=== PATIENT | female | born 1985 | race African-American/Black ===

== ENCOUNTER 2020-11-09 04:24 | Emergency (ER) | payer OTHER, SELFPAY ==
[2020-11-09] MEDS ORDERED: Dicyclomine 20 MG TAB ONE (04:41)
[2020-11-09] MEDS ORDERED: HYDROcodone/Acetaminophen 10/325 mg Tablet ONE (04:41)
[2020-11-09 05:05] LABS: Bilirubin Negative (Negative); Blood, Urine Large (Negative); Clarity Clear (Clear); Glucose, Urine (Dipstick) Negative (Negative); Ketone, Urine Negative (Negative); Leukocyte Negative (Negative); Nitrite Negative (Negative); Protein, Urine (Dipstick) Negative (Neg-Trace); Urobilinogen 0.2 mg/dL (Less than 2)
[2020-11-09 05:22] LABS: Bacteria/HPF Rare-Few HPF (None Seen); RBC/HPF 0-3 HPF (0-3); Squamous Epithelial 0-3 HPF (0-3); WBC/HPF 0-3 HPF (0-3)
== END 2020-11-09 05:26 | disposition home or self-care (01) ==
LOC: BURERS 04:24 → EDBD 04:24 → BURERS 05:26
DX: N23 Unspecified renal colic (principal); Z87.442 Personal history of urinary calculi
CPT/HCPCS: 81003; 81015; 99284

== ENCOUNTER 2021-03-05 22:45 | Emergency (ER) | payer SELFPAY ==
[2021-03-05 23:08] LABS: Bilirubin Small (Negative); Blood, Urine Large (Negative); Clarity Cloudy (Clear); Glucose, Urine (Dipstick) Negative (Negative); Ketone, Urine Trace mg/dL (Negative); Leukocyte Negative (Negative); Nitrite Negative (Negative); Pregnancy Test - Urine (BHCG) Negative (Negative); Pregu Control Background? CLEAR/WHITE (CLR/WHITE); Pregu Control Bar Appear? YES (CONTROL BAR); Protein, Urine (Dipstick) 30 mg/dL (Neg-Trace); Specific Gravity 1.025 (1.002-1.036); Specific Gravity, Urine 1.025 (1.005-1.030); Urobilinogen 0.2 mg/dL (Less than 2)
[2021-03-05 23:16] LABS: Bacteria/HPF Rare-Few HPF (None Seen); RBC/HPF Greater than 50 HPF (0-3); Squamous Epithelial 0-3 HPF (0-3); WBC/HPF 0-3 HPF (0-3)
[2021-03-06] MEDS ORDERED: Morphine 4 MG/ML VIAL ONE (00:24)
[2021-03-06] MEDS ORDERED: Ondansetron PF 4 MG/2 ML Vial ONE (00:24)
[2021-03-06] MEDS ORDERED: Fentanyl 100 MCG/2 ML VIAL ONE (01:08)
== END 2021-03-06 01:27 | disposition home or self-care (01) ==
LOC: BURERS 22:45
DX: N13.2 Hydronephrosis with renal and ureteral calculous obstruction (principal)
CPT/HCPCS: 81003; 81015; 81025; 96374; 96375; J2270; J2405; J3010